=== PATIENT | male | born 1985 | race Two or more races ===

== ENCOUNTER 2024-01-17 19:03 | Emergency (ER) | payer OTHER ==
[~2024-01-17] VITALS: Ht 175.3 cm; Wt 116.1 kg
[2024-01-17] MEDS ORDERED: LOSARTAN-HCTZ1 EAC2 (19:23)
[2024-01-17] MEDS ORDERED: FAMOtidine 10 MG/ML (4ML VIAL) IV PUSH ONE (19:45)
[2024-01-17] MEDS ORDERED: KETOROLAC TROMETHAMINE 60 MG VIAL IM ONE (19:45)
[2024-01-17 20:49] LABS: ABG PH 7.391 (7.35-7.45); ABG PO2 90.5 mmHg (80-100); BASE EXCESS -0.1 mmol/l; BICARBONATE 24.9 mmol/l (23-25); SaO2 96.9 %; Tco2 26.2 mmol/l
[2024-01-17 20:50] LABS: HEMATOCRIT 49.8 % (39.0-48.0); HEMOGLOBIN 16.9 g/dL (13-16.00); MEAN CELL VOLUME 81.8 fL (80.0-100.00); MEAN CORPUSCULAR HEMOGLOBIN 27.9 pg (27.00-32.0); PLATELET COUNT 283 K/uL (150-450); RED BLOOD COUNT 6.08 M/uL (4.00-6.00); RED CELL DISTRIBUTION WIDTH 14.3 % (11.5-14.5)
[2024-01-17 22:42] LABS: o2 21 %
[2024-01-17 22:43] LABS: allen test SATISFACTORY; puncture site RADIAL LEFT
[2024-01-17 23:45] LABS: ALBUMIN 4.2 gm/dL (3.4-5.0); BILIRUBIN TOTAL 0.32 mg/dL (0.3-1.2); CALCIUM 9.7 mg/dL (8.5-10.1); CREATININE SERUM 1.17 mg/dL (0.70-1.30); GFR 69.04; GLOBULINA 3.9 G/DL (2.4-3.5); TOTAL PROTEIN 8.1 gm/dL (6.4-8.2)
[2024-01-18] MEDS ORDERED: KETO10TA2 PO (00:04)
== END 2024-01-18 00:13 | disposition home or self-care (01) ==
LOC: ER 19:05
PROVIDERS: General Practice
DX: R07.89 Other chest pain (principal); M94.0 Chondrocostal junction syndrome [Tietze]; I10 Essential (primary) hypertension; K44.9 Diaphragmatic hernia without obstruction or gangrene